=== PATIENT | male | born 1990 | race African-American/Black ===

== ENCOUNTER 2022-01-13 14:07 | Emergency (ER) | payer MEDICAID, SELFPAY ==
[2022-01-13 14:09] VITALS: BP 114/63; PULSE 84; RESP 18; TEMP 37.2; O2SAT 98; BMI 23.0
--- NOTE | 2022-01-13 14:31 | ED_ITS ---
HPI - URI/Sore Throat General Chief Complaint: Upper Respiratory Symptoms Stated Complaint: Covid Symptoms Time Seen by Provider: 01/13/22 14:22 Source: patient Mode of arrival: ambulatory Limitations: no limitations History of Present Illness HPI Narrative: Patient presents to the emergency department for evaluation of subjective fevers, chills, body aches, and fatigue for 2 days. Reports that his brother has been having similar symptoms but more mild than him. He has not been vaccinated for COVID-19 or influenza. Denies headaches, dizziness, lightheadedness, nasal congestion, sore throat, cough, shortness of breath, difficulty breathing, chest pain, palpitations, nausea, vomiting, abdominal pain, dysuria, urinary frequency, numbness or tingling of the extremities, generalized weakness. MD elicited complaint: fever Onset (ago): day(s) Consistency: constant Severity: mild Able to tolerate fluids by mouth: Yes Exacerbating factors: nothing Relieving factors: nothing Context: sick contacts Associated symptoms: fever and chills Treatments prior to arrival: acetaminophen and ibuprofen Related Data Allergies Allergy/AdvReac Type Severity Reaction Status Date / Time No Known Allergies Allergy Verified 01/13/22 14:09 Review of Systems Review of Systems: Constitutional: Positive fever. Positive chills. No weakness. Positive fatigue. ENT/ Mouth: No Ear Pain, positive Nasal Congestion, positive sore throat, No Rhinorrhea, No Swallowing Difficulty Skin: No rash or itching. Cardiovascular: No chest pain. No palpitations. Respiratory: No shortness of breath. Positive cough. No sputum production. Gastrointestinal: No nausea. No vomiting. No diarrhea. No abdominal pain. Genitourinary: No burning micturition. No urinary frequency. Neurologic: No headache. No dizziness. No syncope. No numbness or tingling in the extremities. Musculoskeletal: No muscle pain. No back pain. No joint pain or stiffness. [facility] Past Medical History Attestation statement: The following information was validated with the patient. Source: old records reviewed Social History Social History Advance Directives: No Advance Directives Information Provided: No Physical Exam Vital Signs: Vital Signs: Last Vital Signs Temp 99.0 F 01/13/22 14:09 Pulse 84 01/13/22 14:09 Resp 18 01/13/22 14:09 BP 114/63 01/13/22 14:09 Pulse Ox 98 01/13/22 14:09 BMI result Body Mass Index 23.0 Vital signs have been reviewed as normal and appeared to be correct. Blood pressure normal.? Heart rate normal.? Respiration rate normal. Temperature normal.? Oxygen saturation normal. Appearance: Alert.?Oriented to person, place and time. No acute distress.?Normal affect. Eyes: Pupils equal, round and reactive to light.? ENT: Pharynx normal.?? Neck: Normal inspection.? Neck supple.?? CVS: Heart sounds normal. Normal heart rate and rhythm.? Pulses normal.?? Respiratory: No respiratory distress.? Lung sounds clear to auscultation bilaterally?? Abdomen: Soft and non-tender. Skin: Skin warm and dry.? Normal skin color.? Extremities: No lower extremity edema.? Neuro: Moves all extremities spontaneously. Sensation intact bilaterally. No motor deficits. Ambulates with normal steady gait. Course Course Course Narrative: Patient is a 31-year-old male with no significant past medical history presenting to emergency department for evaluation of upper respiratory symptoms x2 days. At this time physical exam not consistent with pharyngitis, bronchitis, pneumonia, meningitis. COVID-19 testing is positive. He is overall well appearing, no apparent distress, hemodynamically stable, nontoxic. Discussed plan of care for conservative treatment, Tylenol and ibuprofen as needed for fever and body aches, rest, adequate hydration, small frequent meals, isolation for 5 days from school/work. Discussed reasons to return back to the emergency department. All questions were answered. Patient discharged home in stable condition. MDM - URI/Sore Throat Medical Records Attestation: I reviewed the patient's medical records. Lab Data Attestation: I reviewed the patient's lab results. Labs: Lab Results 01/13/22 01/13/22 Range/Units 14:19 14:19 COVID-19 (MARY) Positive A (Negative) COVID-19 Clin Com See Note Influenza Type A (BLANE) Negative (Negative) Influenza Type B (BLANE) Negative (Negative) Influenza A & B Note See Note Discharge Plan Discharge Clinical Impression: COVID-19 Patient Disposition: Home, Self-Care Instructions: COVID-19 (Coronavirus Disease 2019) (ED) Additional Instructions: You have tested positive for COVID-19. It is important to self isolate for at least 5 days since her symptom onset. You can end isolation if you are symptom- free, and have been without a fever for 24 hours without the use of Tylenol or ibuprofen. You can take ibuprofen 200 mg, 3 tablets (600mg) every 6-8 hours as needed for pain, in addition to Tylenol 500 mg, 2 tablets (1,000mg) every 4-6 hours as needed for pain, but not to exceed 3 doses daily (3,000mg).? Be sure to rest, stay well hydrated. Return to the emergency department with any new or worsening symptoms or concerns. If you develop chest pain, palpitations, shortness of breath, difficulty breathing you should come back to the emergency department for evaluation. Stand Alone Forms: Work/School Release Interventions: ED Discharge Assessment Last Done: 01/13/22 14:52 Discharge Date/Time: 01/13/22 14:53
[2022-01-13 14:34] LABS: COVID-19 Test Positive (Negative)
[2022-01-13 14:46] LABS: IDNOW Serial# 16C4AD1C; Influenza A Negative (Negative); Influenza B2 Negative (Negative)
== END 2022-01-13 14:53 | disposition home or self-care (01) ==
PROVIDERS: Emergency Provider Emergency Medicine
DX: U07.1 COVID-19 (principal); R50.9 Fever, unspecified; Z79.899 Other long term (current) drug therapy
CPT/HCPCS: 87502; 87635; 99283

== ENCOUNTER 2024-10-19 11:03 | Outpatient (AMB) | payer OTHER, SELFPAY ==
--- NOTE | 2024-10-19 11:18 | A.OFFPC_ITS ---
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 - [place] (does not recall practice or [facility] name) Last office visit/CPE/labs - 8 years ago Acute issue(s) - Reports persistent aches to both knee since he was 14 years ago. Reports mild bilateral knee pain today - Intermittent right hip injury for the past 2 years. Injured while playing flag football. He was not medically evaluated. Pain is provoked by prolonged sitting - Does not take any medication for pain Past Medical History - Chronic bilateral knee pain - Chronic right hip pain Surgical History - None Family History - None Social History - Smokes 12 cigarettes daily, 10 years h x with average of 6-8 daily. Does not vape. Drinks 4-5 nips with a beer or two 3-4 days weekly. Smokes 5 blunts cannabis daily - Generally makes unhealthy dietary mcnally tara. Active but does not exercise. Generally sleep well Health maintenance - Last eye exam was 2 years ago. Referre d to Ophthalmology for routine eye care. - Last dental visit was a year and half ago; encouraged to schedule an appointment with his dentist for routine dental care. - Last tetanus vaccine was more than 10 years ago; received Tdap vaccine today - Has not been vaccinated for the flu ; declines vaccination [facility] Social History (Updated 10/19/24 @ 11:54 by Mini Stevens) Housing: House Patient Tobacco Use Status: Current everyday Tobacco user Cigarette Packs Per Day: 1.5 Cigarettes Per Day: 30 e-Cigarette/Vaping Use: Never Used Second Hand Smoke Exposure: No Substance Use Type: Marijuana service: No Current occupational status: employed Current occupation: vp security Current occupational exposures/hazards: No Cognitive needs: No Hearing needs: No Vision needs: No Questionnaire PHQ-9 Over the last 2 weeks, how often have you been bothered by any of the following problems? 1. Little interest or pleasure in doing things: several days 2. Feeling down, depressed, or hopeless: several days 3. Trouble falling or staying asleep, or sleeping too much: several days 4. Feeling tired or having little energy: several days 5. Poor appetite or overeating: several days 6. Feeling bad about yourself - or that you are a failure or have let yourself or your family down: several days 7. Trouble concentrating on things, such as reading the newspaper or watching television: not at all 8. Moving or speaking so slowly that other people could have noticed. Or the opposite - being so fidgety or restless that you have been moving around a lot more than usual: not at all 9. Thoughts that you would be better off or of hurting yourself in some way: not at all Total score: 6 Depression Screening Interpretation: Positive Depression Screening Done: Yes 57812 - PHQ-9 Billing: Yes Source: Developed by Drs. Omar Sr, Debbie Quarles, Dutch Harley and colleagues, with an educational veronica from [employer]. Thrive Questionnaire Date Thrive assessed: 10/19/24 I am a: Patient What is your living situation today?: I have a steady place to live Within the past 12 months, did the food you bought not last and you didn't have the money to get more?: Sometimes True Within the past 12 months, did you worry whether your food would run out before you got money to buy more?: Sometimes True Do you have trouble paying for medicines?: No Do you have trouble getting transportation to medical appointments?: No Do you have trouble paying your heating and electricity bill?: No Do you have trouble taking care of your child, family member or friend?: No Do you have trouble with day-to-day activities such as bathing, preparing meals, shopping, managing finances, etc.?: No Are you currently unemployed and looking for a job?: No Are you interested in more education?: Yes Please select the resources that you would like help with: Education Currently or been in a relationship where the following occur: No concerns reported THRIVE Score: 2 AUDIT C Alcohol Use Questionnaire (AUDIT-C) 1. How often do you have a drink containing alcohol?: 2-3 times a week 2. How many drinks containing alcohol do you have on a typical day when you are drinking?: 1 or 2 3. How often do you have six or more drinks on one occasion?: Monthly Total Score: 5 Score Reviewed/Action Taken: Yes LISETH-7 AMB Questionnaire LISETH-7 Date LISETH - 7 assessed: 10/19/24 Feeling nervous, anxious, or on edge: 1 = Several days Not being able to stop or control worryin = Several days Worrying too much about different things: 1 = Several days Trouble relaxin = Several days Being so restless that it is hard to sit still: 0 = Not at all Becoming easily annoyed or irritable: 1 = Several days Feeling afraid as if something awful might happen: 1 = Several days Total LISETH-7 score (0-4 normal; 5-9 mild; 10-14 moderate; 15-21 severe): 6 Source: Developed by Drs. Omar Sr, Debbie Quarles, Dutch Harley and colleagues, with an educational veronica from [employer]. LISETH-7 Assessment Billing LISETH-7 Assessment Tool: LISETH-7 Assessment 02225 Review of Systems Const Details: Const Denies chills, Denies fatigue, Denies fever(s), Denies headache(s) and Denies weakness ENT Denies dizziness and Denies headache(s) Card Denies chest pain, Denies lightheadedness, Denies dyspnea and Denies other (Palpitations) Resp Denies cough, Denies dyspnea, Denies wheezing and Denies other ( shortness of breath) GI Denies abdominal pain, Denies melena, Denies hematochezia, Denies change in bowel habits, Denies dyspepsia and Denies nausea Denies hematuria and Denies dysuria Musc Reports chronic bilat knee pain, Denies abnormal gait, Denies numbness and Denies tingling Skin/Breast Denies rash, Denies unusual bruising and Denies wounds Neuro Denies abnormal gait, Denies dizziness, Denies headache(s), Denies memory loss, Denies numbness, Denies Sensory deficit (Neuro), Denies tingling and Denies weakness Psych Denies anxiety, Denies depression, Denies memory loss Endo Denies cold intolerance, Denies fatigue, Denies heat intolerance, Denies polydipsia and Denies polyuria Aller/Immun Denies wheezing Physical exam (Primary Care) Vital Signs: Last Vital Signs Temp 98.6 F 10/19/24 11:49 Pulse 82 10/19/24 11:49 Resp 16 10/19/24 11:49 BP 129/72 10/19/24 11:49 Pulse Ox 99 10/19/24 11:49 Oxygen Delivery Method Room Air 10/19/24 11:49 BMI result Body Mass Index 24.5 Tobacco/Smoking Status: Tobacco use Status Tobacco use date assessed 10/19/24 10/19/24 11:54 Patient Tobacco Use Status Current everyday Tobacco 10/19/24 11:54 e-Cigarette/Vaping Use Never Used 10/19/24 11:54 PHQ-9: PHQ-9 Score PHQ-9: Total score 6 10/19/24 12:45 Depression Screening Interpretation: Positive Thrive Assessment: Date of Thrive Assessment Date Thrive assessed 10/19/24 10/19/24 11:19 Currently or been in a relationship where the following occur: No concerns reported Const Other: General: no acute distress and well developed Nutritional Appearance: well nourished Orientation/consciousness: patient oriented x3 HENMT Head: Yes normocephalic and Yes atraumatic Eyes General: appearance normal, both eyes and all related structures Pupils: Equal, round and reactive pupils present EOM: EOMs intact bilaterally Resp Effort & Inspection: normal respiratory effort Auscultation: clear to auscultation bilaterally Cardio Rate: regular rate Rhythm: regular rhythm Heart sounds: S1 normal heart sound present, S2 normal heart sound present, no gallops, no murmurs and no rubs GI Palpation (GI): No Abdominal aortic bruit present, Soft to palpation, nontender, No hepatosplenomegaly present and No Rebound tenderness present Auscultation: normal bowel sounds General: Yes no CVA tenderness Back/Spine/Pelvis Back: no CVA tenderness Cervical Spine: cervical ROM normal and No Cervical spine tenderness Thoracic/Lumbar Spine: thoraco-lumbar ROM normal, No pain with thoraco-lumbar ROM, No thoracic spinal tenderness and No lumbar spinal tenderness Extrem General: Yes normal to inspection, No edema and No calf tenderness Skin General: warm and dry. Normal skin color. Normal skin turgor Lesions: no lesions Rashes: no rashes Trauma: no lacerations or abrasions Wounds: no wounds Nails: normal Neuro General: patient oriented x3, gait normal and no focal neuro deficit Cranial nerves: Yes Equal, round and reactive pupils present Cognition (Neuro): normal cognition Gait exam (Neuro): Normal gait present Sensory Exam: No Sensory deficit (Neuro) Psych Appearance: grossly normal Affect: normal affect Attitude: cooperative Thought process: Normal thought process present Immunizations Boostrix Tdap 2.5 Lf unit-8 mcg-5 Lf/0.5 mL intramuscular syringe Performing Provider: Eugenia Jose CNP [place] [facility] [place] [facility] Administered by: Zaira Kang RN on 10/19/24 12:45 Dose Route Admin Location Dispensed Lot Number Expiration Date [facility] Cartridge [employer]er 0.5 mL IM Left Deltoid 0.5 mL [id number] 11/27/26 [id number] [employer] VIS Given Date VIS Provided VIS Publication Date 10/19/24 Single Vaccine 21 Eligibility Eligibility Date Funding Source Not [facility] Eligible 10/19/24 Private Coding Level of Care Code New Pt Level 4 (33976) New Pt Prev Care 18-39yr(72946 Diagnoses Normal physical examination, routine Z00.00 Chronic right hip pain M25.551; G89.29 Chronic pain of both knees M25.561; M25.562; G89.29 Poor nutrition E63.9 Eye exam, routine Z01.00 Smoking trying to quit Z72.0 Alcohol intake above recommended sensible limits F10.90 Vaccine for tetanus toxoid Z23 Laboratory tests ordered as part of a complete physical exam (CPE) Z00.00 Additional Codes LISETH-7 Assessment Billing - LISETH-7 Assessment Tool: LISETH-7 Assessment 13850 ([id number]) PHQ-9 - 15509 - PHQ-9 Billing: Yes ([id number]) Assessment & Plan Assessment & Plan (1) Normal physical examination, routine: Code(s): Z00.00 - Encounter for general adult medical examination without abnormal findings Category: Medical Plan: No significant functional limitation noted. (2) Chronic right hip pain: Code(s): M25.551 - Pain in right hip; G89.29 - Other chronic pain Category: Medical Plan: Normal ROM of the right hip. No overt injury or trauma. May take Tylenol ibuprofen for pain or discomfort. Warm/cool compresses encouraged. X-ray of the right hip and pelvic ordered. (3) Chronic pain of both knees: Code(s): M25.561 - Pain in right knee; M25.562 - Pain in left knee; G89.29 - Other chronic pain Category: Medical Plan: Normal ROM of both knees. No overt injury or trauma. X-ray of both may ordered. Plan as above. (4) Poor nutrition: Code(s): E63.9 - Nutritional deficiency, unspecified Category: Medical Plan: Generally makes unhealthy dietary choices. Active but does not exercise. Healthy diet and routine exercise encouraged. [place] [facility] [place] requested. Follow-up as needed. Verbalized understanding and agreed with the plan. (5) Eye exam, routine: Code(s): Z01.00 - Encounter for examination of eyes and vision without abnormal findings Category: Medical Plan: Last eye exam was 2 years ago. Referred to Ophthalmology for routine eye exam. (6) Smoking trying to quit: Code(s): Z72.0 - Tobacco use Category: Social Hx Plan: Smokes 12 cigarettes daily, 10 years hx with average of 6-8 daily. Instructed on the health risks and complications of cigarette smoking. Smoking cessation encouraged. He is willing to try nicotine patch for smoking cessation. Nicotine patch ordered; advised to use as prescribed. Instructed on the risks, benefits, and potential adverse reactions of the medication. Encouraged to avoid smoking while using the patch. Follow-up as needed. Verbalized understanding and agreed with the treatment plan. (7) Alcohol intake above recommended sensible limits: Code(s): F10.90 - Alcohol use, unspecified, uncomplicated Category: Medical Plan: He drinks 4-5 nips with a beer or two 3-4 days weekly. Instructed on the health risks and complications of excessive alcohol intake. Encouraged to limit or cut down alcohol consumption; no more than 2 drinks per day or 7 weekly. He notes that he will start cutting down on drinking. Follow-up as needed. Verbalized understanding and agreed with the plan. (8) Vaccine for tetanus toxoid: Code(s): Z23 - Encounter for immunization Category: Medical Plan: Last tetanus vaccine was over 10 years ago. Tetanus vaccine administered during this visit. (9) Laboratory tests ordered as part of a complete physical exam (CPE): Code(s): Z00.00 - Encounter for general adult medical examination without abnormal findings Category: Medical Plan: Fasting labs ordered as part of a complete physical exam. Advised to fast for at least 10 hours before getting labs drawn. May drink water Verbalized understanding and agreed with treatment plan. Orders: Orders Complete Blood Count Auto Diff Today Z00.00 - Encounter for general adult medical examination without abnormal findings Lipid Panel Today Z00.00 - Encounter for general adult medical examination without abnormal findings TSH reflex Free T4 Today Z00.00 - Encounter for general adult medical examination without abnormal findings UA CC w/rflx Micro + Cult Today Z00.00 - Encounter for general adult medical examination without abnormal findings CRP High Sensitivity Today G89.29 - Other chronic pain, M25.551 - Pain in right hip, M25.561 - Pain in right knee, M25.562 - Pain in left knee XR hip RT w PEL1V Today G89.29 - Other chronic pain, M25.551 - Pain in right hip TDaP Immunization Today Z23 - Encounter for immunization Comprehensive [place]. Panel Fast Today Z00.00 - Encounter for general adult medical examination without abnormal findings XR knee LT 2V Today G89.29 - Other chronic pain, M25.561 - Pain in right knee, M25.562 - Pain in left knee XR knee RT 2V Today G89.29 - Other chronic pain, M25.561 - Pain in right knee, M25.562 - Pain in left knee Referrals Ophthalmology Referral Z01.00 - Encounter for examination of eyes and vision without abnormal findings Nutrition/Dietitian Referral E63.9 - Nutritional deficiency, unspecified Medications: New nicotine Apply 14 mg patch daily x6 weeks, then apply 7 mg patch daily x2 weeks 1 patch transdermal Q24H 56 ea 0RF
[2024-10-19 11:49] VITALS: BP 129/72; PULSE 82; RESP 16; TEMP 37; O2SAT 99; BMI 24.5
== END 2024-10-19 12:43 | disposition home or self-care (01) ==
PROVIDERS: PCP Nurse Practitioner Family; Visit Provider Nurse Practitioner Family
DX: Z00.00 Encounter for general adult medical examination without abnormal findings (principal); M25.551 Pain in right hip; G89.29 Other chronic pain; M25.561 Pain in right knee; M25.562 Pain in left knee; E63.9 Nutritional deficiency, unspecified; Z72.0 Tobacco use; F10.90 Alcohol use, unspecified, uncomplicated; Z23 Encounter for immunization

== ENCOUNTER → 2024-10-19 11:03 | Outpatient (BNVA) | payer OTHER, SELFPAY | PROVIDERS: PCP Nurse Practitioner Family; Visit Provider Nurse Practitioner Family | DX: Z00.01 Encounter for general adult medical examination with abnormal findings (principal); Z23 Encounter for immunization; M25.551 Pain in right hip; G89.29 Other chronic pain; M25.561 Pain in right knee; M25.562 Pain in left knee; E63.9 Nutritional deficiency, unspecified; F10.90 Alcohol use, unspecified, uncomplicated; Z72.0 Tobacco use | CPT/HCPCS: 90471; 90715; 96127; 99202; 99385 ==

== ENCOUNTER 2024-11-09 10:05 | Outpatient (AMB) | payer OTHER, SELFPAY ==
--- NOTE | 2024-11-09 10:12 | A.OFFVIS_ITS ---
VS Expanded 11/09/24 10:26 11/16/24 09:30 Height 5 ft 11.3 in 5 ft 11 in Weight 173 lb 15.115 oz 174 lb BMI 24.1 24.3 Intake Visit Reasons: Nutritional deficiency, unspecified Allergies No Known Allergies Allergy (Verified 10/19/24 12:06) Nutrition Presentation Details: Pt presents for MNT for poor nutrition Pt reports long hx of smoking and etoh intake , wants to work on smoking cessation- wll pick patches rx by MD Reports having snacks throughout the day chips/candy and one meal/day, homemade meal : chicken/rice/beans BS Monitoring Most Recent Diabetes Results: No Data to Display AOB-[id number]-Ma.Jeor Equation Height: 5 ft 11 in Weight: 174 lb Resting Metabolic Rate: 1758.23 Calculated Activity Level: Mild Activity Calories Needed to Maintain Weight: 2417.57 Diagnosis Nutrition problem #1: inadequate protein energy As related to (etiology) #1: lack of nutrit education As evidenced by (sign/symptom) #1: food recall (with increased intake of empty calorie beverages -ETOH and r) [facility] Social History (Updated 10/19/24 @ 11:54 by Mini Stevens MA) Housing: House Patient Tobacco Use Status: Current everyday Tobacco user Cigarette Packs Per Day: 1.5 Cigarettes Per Day: 30 e-Cigarette/Vaping Use: Never Used Second Hand Smoke Exposure: No Substance Use Type: Marijuana service: No Current occupational status: employed Current occupation: security program manager Current occupational exposures/hazards: No Cognitive needs: No Hearing needs: No Vision needs: No Assessment & Plan Assessment & Plan (1) Poor nutrition: Code(s): E63.9 - Nutritional deficiency, unspecified Category: Medical Plan: Wt: 79 Kg ( 11/30 ) Est kcal needs as per MSJ: 2500+ 1000(nutritien dense foods) (40% carb, 30% protein/fat) Est fluid needs as per 25-30 ml/d: 2400 Est prot per day as per 1 g/kg bw: 79 Recommend fiber intake : 8-10 g per day and gradually increase to 25-28 g per day for women and 35-38 g for men or as tolerated Recommend sodium intake per day : less than 1500 mg less than 2000 mg Educated patient on: ( R = reviewed V = verbalizes understanding N/R = needs review N/A = not applicable * Food sources of carbohydrate, adequate serving sizes and its role in various health conditions: R V N/R * Differences between complex carbohydrates a simple carbohydrates, role of fiber in diet: R V N/R * Lean protein sources of foods: R * Differences between types of fats and role in diet (mono on saturated fat fatty acids, saturated fatty acids, trans fats): R V N/R * Food sources of sodium in salt and healthy modifications for heart health in kidney health: R V R/V * Vitamins and minerals in foods: R * Healthy plate method concept: R V N/R * Physical activity: Benefits a precaution: R V N/R * Hypoglycemia protocol (rule of 15): R V N/R * Dietary prevention of Hyperglycemia: R V R/V Patient Instructions: Gradually work on having 3 meals/day HAve a meal supplement once a day (see list of options) Choose quick nutrient dense foods as snack/meals: oatmeal packet made with milk, protein snack bars, nuts Choose fruits juices , milk as beverages Coding Level of Care Code Nutr Indiv Intake (44773) Diagnoses Poor nutrition E63.9 Time Spent (min) 30
[2024-11-09 10:26] VITALS: BMI 24.1
[2024-11-16 09:30] VITALS: BMI 24.3
== END 2024-11-09 10:30 | disposition home or self-care (01) ==
PROVIDERS: PCP Nurse Practitioner Family; Visit Provider Dietitian, Registered
DX: E63.9 Nutritional deficiency, unspecified (principal)

== ENCOUNTER → 2024-11-09 10:05 | Outpatient (BNVA) | payer OTHER, SELFPAY | PROVIDERS: PCP Nurse Practitioner Family; Visit Provider Dietitian, Registered | DX: E63.9 Nutritional deficiency, unspecified (principal) | CPT/HCPCS: 97802 ==

== ENCOUNTER 2024-11-12 08:18 | Outpatient (REF) | payer OTHER, SELFPAY ==
--- NOTE | ~2024-11-12 | XR_ITS ---
CLINICAL HISTORY: M25.561 - Pain in right knee 2 view right knee Comparison: None Findings: Bones intact. No dislocations. No significant loss of joint space, osteophytes, or erosions. Trace suprapatellar joint effusion. No radiopaque foreign body. IMPRESSION: Trace suprapatellar joint effusion. No acute osseous findings. This document has been electronically signed by: Alexandrea Clark MD on 11/13/2024 09:05:49
--- NOTE | ~2024-11-12 | XR_ITS ---
CLINICAL HISTORY: M25.551 - Pain in right hip AP view, pelvis and two-view right hip Comparison: None Findings: The bones are intact. No significant arthritic change. Hip joints, sacroiliac joints, pubic symphysis joint, and partially imaged lower lumbar spine are relatively maintained. The soft tissues are unremarkable. Pelvic phleboliths. IMPRESSION: No acute findings. This document has been electronically signed by: Alexandrea Clark MD on 11/13/2024 09:06:02
--- NOTE | ~2024-11-12 | XR_ITS ---
CLINICAL HISTORY: M25.561 - Pain in right knee 2 view left knee Comparison: None Findings: No fractures or dislocations. Minimal medial joint space narrowing. No significant arthritic change or erosions. No joint effusion. No radiopaque foreign body. IMPRESSION: Minimal medial joint space narrowing. No acute findings. This document has been electronically signed by: Alexandrea Clark MD on 11/13/2024 09:07:10
== END 2024-11-12 08:19 | disposition home or self-care (01) ==
LOC: HO.XRAY 08:18
PROVIDERS: PCP Nurse Practitioner Family; Visit Provider Nurse Practitioner Family
DX: M25.551 Pain in right hip (principal); G89.29 Other chronic pain; M25.561 Pain in right knee; M25.562 Pain in left knee
CPT/HCPCS: 73502; 73560

== ENCOUNTER → 2024-11-12 08:22 | Outpatient (BNV) | payer OTHER, SELFPAY | PROVIDERS: PCP Nurse Practitioner Family; Visit Provider Radiology Diagnostic Radiology | DX: M25.551 Pain in right hip (principal); M25.561 Pain in right knee; M25.562 Pain in left knee | CPT/HCPCS: 73502; 73560 ==